=== PATIENT | female | born 1965 | race Caucasian/White ===

== ENCOUNTER 2018-09-09 17:48 | Emergency (ER) | payer OTHER ==
[~2018-09-09] VITALS: Ht 160 cm; Wt 61.9 kg
--- NOTE | 2018-09-09 18:04 | NUR ---
RLQ pain since this morning, denies N/V/D/fevers. per triage note pt walked in the rm with family stable gait
--- NOTE | 2018-09-09 18:15 | NUR ---
pt stated having pain for all day long pa lisa at bed side
[2018-09-09 18:31] LABS: BASOPHILS # (AUTO) 0.04 x10^3/uL (0-0.1); BASOPHILS % (AUTO) 1 % (0-1); EOSINOPHILS # (AUTO) 0.09 x10^3/uL (0-0.4); EOSINOPHILS % (AUTO) 1 % (1-7); LYMPHOCYTES # (AUTO) 2.54 x10^3/uL (1-3.4); LYMPHOCYTES % (AUTO) 33 % (22-44); MD NO; MEAN CORPUSCULAR HEMOGLOBIN 30.4 pg (27.0-34.8); MEAN CORPUSCULAR HGB CONC 33.5 g/dL (32.4-35.8); MEAN CORPUSCULAR VOLUME 90.7 fL (80-100); MEAN PLATELET VOLUME 7.9 fL (7.4-10.4); MONOCYTES # (AUTO) 0.87 x10^3/uL (0.2-0.8); MONOCYTES % (AUTO) 11 % (2-9); NEUTROPHILS # (AUTO) 4.15 x10^3/uL (1.8-6.8); NEUTROPHILS % (AUTO) 54 % (42-75); PLATELET COUNT 282 x10^3/uL (130-400); RED BLOOD COUNT 4.39 x10^6/uL (3.82-5.3); RED CELL DISTRIBUTION WIDTH 12.8 % (9.6-15.2)
[2018-09-09 18:43] LABS: ALANINE AMINOTRANSFERASE 24 U/L (12-78); ALBUMIN 3.8 g/dL (3.4-5.0); ANION GAP 5 mmol/L (5-15); CALCIUM 9.1 mg/dL (8.5-10.1); CHLORIDE 110 mmol/L (98-107); CREATININE 0.87 mg/dL (0.55-1.02)
[2018-09-09 18:45] LABS: ALKALINE PHOSPHATASE 84 U/L (45-117); BILIRUBIN,TOTAL 0.2 mg/dL (0.2-1.0); TOTAL PROTEIN 7.4 g/dL (6.4-8.2)
[2018-09-09] MEDS ORDERED: SODIUM CHLORIDE FLUSH 10ML SYR IVF ONE (19:00)
--- NOTE | 2018-09-09 19:00 | NUR ---
received report from ANDREW Hernandez. patient went to CT scan.
--- NOTE | 2018-09-09 19:09 | NUR ---
IV WAS STARTED PT IS IN CT NOW [facility] IN LAB GIVEN REPORT TO ANDREW LONGORIA
--- NOTE | 2018-09-09 19:15 | NUR ---
back from CT scan. IV infiltrated. New IV placed. CT scan notified.
[2018-09-09 19:25] LABS: MICROSCOPIC NOT IND
--- NOTE | 2018-09-09 19:28 | NUR ---
patient to CT scan.
[2018-09-09 19:31] LABS: CULTURE INDICATED? NO
[2018-09-09] MEDS ORDERED: OMNIPAQUE 350 MG/ML, 100ML BOTTLE ONE (19:36)
--- NOTE | 2018-09-09 21:05 | NUR ---
TASK RN: Dr. Cortez at bedside to discuss ED findings and POC.
--- NOTE | 2018-09-09 21:13 | NUR ---
TASK RN: Patient/Caregiver given discharge instructions and they have confirmed that they understand the instructions. Patient ambulatory with steady gait.
[2018-09-09 21:14] VITALS: BP 124/73
== END 2018-09-09 21:20 | disposition home or self-care (01) ==
LOC: ED 20:36
DX: R10.11 Right upper quadrant pain (principal)
CPT/HCPCS: 36415; 74177; 80053; 81003; 83690; 85025; 99284; Q9967